=== PATIENT | male | born 1970 | race Caucasian/White ===

== ENCOUNTER 2019-01-29 05:46 | Day surgery (SDC) | payer MEDICARE, OTHER ==
[~2019-01-29] VITALS: Ht 180.3 cm; Wt 121.3 kg
[~2019-01-29 05:46] MED LIST: ATOR10 PO; FURO20 PO; Jantoven5 MG PO; LOSA50 PO; Lopressor 25 mg25 MG PO; METF500 PO; METO50 PO
[2019-01-29] MEDS ORDERED: Lovenox100 MG/1 M SC (06:41)
--- NOTE | 2019-01-29 07:11 | NUR ---
Ambulatory in Day Surgery. GAIT SLOW AND SLIGHTLY UNSTEADY FROM SPINAL STENOSIS PER PATIENT. Surgical site prepped with 2% Chlorhexidine cloth wipe. History, Chart, Medications and Allergies reviewed before start of procedure.Patient confirms NPO status and agrees with scheduled surgery. Patient reports completing Chlorhexadine shower X2 prior to admission to hospital. PT LUNGS SOUND COARSE T/O. HX FIBROSIS.
[2019-01-29 07:18] LABS: International Normalized Ratio 1.07; Prothrombin Time Results 11.3 Sec (9.7-11.5)
--- NOTE | 2019-01-29 18:22 | NUR ---
SHIFT SUMMARY S/P LAP FLORENCIO + LIVER BIOPSY TODAY. VSS. PT REPORTS MINIMAL PAIN AND DENIES NEED FOR PAIN MEDICATION. LAP SITES X4 TO ABD REMAIN CDI. DACIA REG DIET. INDEP IN ROOM AND AMBULATING. IV IS SL. PT VOIDING. PT IS WAITING FOR MRI RECORDS FROM [facility] TO BE SENT HERE SO THAT HE CAN HAVE AN MRI. PT USES CALL LIGHT APPROPRIATELY.
[2019-01-30 04:41] LABS: BASOPHILS ABSOLUTE AUTO 0.08 K/mm3 (0.00-0.23); BASOPHILS PERCENT AUTO 1 % (0-2); EOSINOPHILS PERCENT AUTO 1 % (0-6); Hematocrit 46.1 % (37.0-53.0); Hemoglobin 15.1 g/dL (13.5-17.5); IMMATURE GRAN ABSOLUTE AUTO 0.04 K/mm3 (0.00-0.10); IMMATURE GRAN PERCENT AUTO 0 % (0-1); LYMPHOCYTES ABSOLUTE AUTO 2.84 K/mm3 (0.84-5.20); LYMPHOCYTES PERCENT AUTO 23 % (21-46); MONOCYTES PERCENT AUTO 9 % (4-13); Mean Corpuscular HGB 30.2 pg (26.0-34.0); Mean Corpuscular HGB Conc 32.8 g/dL (31.5-36.5); Mean Corpuscular Volume 92 fL (80-100); Mean Platelet Volume 11.4 fL (9.1-12.4); NEUTROPHILS ABSOLUTE AUTO 8.22 K/mm3 (1.96-9.15); NEUTROPHILS PERCENT AUTO 67 % (41-73); Platelet Count 197 K/mm3 (150-400); RDW Coefficient Variation 13.9 % (11.7-14.2); RDW Standard Deviation 47.2 fL (35.1-46.3); White Blood Cell Count 12.38 K/mm3 (4.00-11.30)
[2019-01-30 04:54] LABS: International Normalized Ratio 1.06; Prothrombin Time Results 11.2 Sec (9.7-11.5)
--- NOTE | 2019-01-30 07:48 | NUR ---
SHIFT SUMMARY PT POD#1 LAP FLORENCIO. AAOX4. DISOCMFORT AT TOLERABLE LEVEL T/O NIGHT. NO NAUSEA/EMESIS. ABD INCISION WITH GAUZE C/D/I. INDEPENDENT IN ROOM. GOOD PO INTAKE + OUTPUT. AWAITING IMAGING THIS AM. CALL LIGHT IN REACH + PT USES FOR ASSISTANCE.
--- NOTE | 2019-01-30 11:25 | NUR ---
SPOKE WITH DR. GOMES ABOUT TREATMENT PLAN FOR POSSIBLE [facility]SFER [place] TO GET ERCP DONE. DISCUSSED WITH PT.
[2019-01-30 12:21] LABS: Alanine Aminotransfer (ALT/SGP 58 U/L (12-78); Albumin, Blood 3.7 g/dL (3.4-5.0); Alk Phos 82 U/L (50-136); Anion Gap 5 mmol/L (6-16); Aspartate Aminotrans (AST/SGOT 38 U/L (12-37); Bilirubin, Total 0.5 mg/dL (0.1-1.0); Blood Urea Nitrogen 16 mg/dL (8-24); Bun/Creatinine Ratio 15.2 (12.0-20.0); CO2, Blood 30 mmol/L (21-32); Chloride, Blood 108 mmol/L (98-108); Creatinine, Blood 1.05 mg/dL (0.60-1.20); Globulin, Blood 3.7 g/dL (2.2-4.0); Glomerular Filtration Rate >60 (60-); Glucose, Blood 94 mg/dL (70-99); Potassium, Blood 3.5 mmol/L (3.5-5.5); Sodium, Blood 143 mmol/L (136-145); Total Protein, Blood 7.4 g/dL (6.4-8.2)
--- NOTE | 2019-01-30 14:05 | NUR ---
DISCHARGE PT EDUCATED ON AND RECEIVED PRINTED DC INSTRUCTIONS AND VERB AN UNDERSTANDING. IV DC'D. HARD RX FOR LOVENOX GIVEN TO PT AND CALLED INTO [facility] IN [place]. PT LEFT WITH ALL PERSONAL BELONGINGS WITH SIG OTHER AT SIDE.
== END 2019-01-30 14:01 | disposition home or self-care (01) ==
LOC: ORSCMMR 05:46 → ORD 07:30 → ORSCMMR 07:30 → SURS 09:31 → ORSCMMR 09:31 → SURS 10:24 → ORSCMMR 01-30 14:01 → SURS 01-30 14:01
PROVIDERS: Surgery
PROC: 0FB03ZX Excision of Liver, Percutaneous Approach, Diagnostic (ICD-10-PCS; 2019-01-29)
PROC: 0FT44ZZ Resection of Gallbladder, Percutaneous Endoscopic Approach (ICD-10-PCS; principal; 2019-01-29 07:30)
PROC: BF13YZZ Fluoroscopy of Gallbladder and Bile Ducts using Other Contrast (ICD-10-PCS; 2019-01-29 07:30)
DX: K80.10 Calculus of gallbladder with chronic cholecystitis without obstruction (principal); K75.81 Nonalcoholic steatohepatitis (NASH); I10 Essential (primary) hypertension; E11.9 Type 2 diabetes mellitus without complications; G47.33 Obstructive sleep apnea (adult) (pediatric); E66.9 Obesity, unspecified; Z79.01 Long term (current) use of anticoagulants; Z79.899 Other long term (current) drug therapy; Z79.84 Long term (current) use of oral hypoglycemic drugs
CPT/HCPCS: 36415; 74300; 80053; 82947; 85025; 85610; 85730; 88304; 88307; 88313; C1729; G0378; J0330; J0690; J1100; J1650; J1885; J2250; J2405; J2704; J2710; J3010; J7030; J7120